=== PATIENT | female | born 1965 | race Caucasian/White ===

== ENCOUNTER 2017-04-04 02:35 | Emergency (ER) | payer BC, OTHER ==
--- NOTE | 2017-04-04 04:48 | C.PDOC ---
History Of Present Illness 51 year old female who presents to the ER with a complaint of a headache secondary to insomnia. Patient states she has had insomnia for the past 3 days; she reports taking advil pm with no relief. Denies vomiting, neck pain, chest pain, SOB, palpitations, or URI symptoms. Time Seen by Provider: 04/04/17 02:56 Chief Complaint (Nursing): Headache History Per: Patient History/Exam Limitations: no limitations Onset/Duration Of Symptoms: Days Current Symptoms Are (Timing): Still Present Preceeding Symptoms: None Associated Symptoms: denies: Nausea, Vomiting Recent travel outside of the [place]: No Past Medical History Reviewed: Historical Data, Nursing Documentation, Vital Signs Vital Signs: Last Vital Signs Temp 98 F 04/04/17 03:01 Pulse 66 04/04/17 03:01 Resp 20 04/04/17 03:01 BP 144/85 04/04/17 03:01 Pulse Ox 98 04/04/17 04:52 - Medical History PMH: Hypothyroidism Surgical History: No Surg Hx Family History: States: Unknown Family Hx - Social History Hx Tobacco Use: No Hx Alcohol Use: No Hx Substance Use: No - Immunization History Hx Tetanus Toxoid Vaccination: No Hx Influenza Vaccination: Yes Hx Pneumococcal Vaccination: No Review Of Systems Cardiovascular: Negative for: Chest Pain, Palpitations Respiratory: Negative for: Cough, Shortness of Breath Gastrointestinal: Negative for: Vomiting Musculoskeletal: Negative for: Neck Pain Neurological: Positive for: Headache Physical Exam - Physical Exam Appears: Non-toxic Skin: Normal Color, Warm, Dry Head: Atraumatic, Normacephalic Eye(s): bilateral: Normal Inspection, PERRL, EOMI Oral Mucosa: Moist Neck: Normal, Supple Chest: Symmetrical, No Tenderness Cardiovascular: Rhythm Regular, No Murmur Respiratory: Normal Breath Sounds, No Rales, No Rhonchi, No Wheezing Gastrointestinal/Abdominal: Soft, No Tenderness Neurological/Psych: Oriented x3, Normal Speech, Normal Cognition ED Course And Treatment O2 Sat by Pulse Oximetry: 98 (Room air) Pulse Ox Interpretation: Normal Progress Note: Valium and motrin administered. On reevaluation, patient is sleeping comfortable on the stretcher; feels her condition has improved, will discharge home with follow up. Disposition - Disposition Referrals: Bev Jack MD [Non-Staff] - Disposition: HOME/ ROUTINE Disposition Time: 05:01 Condition: STABLE Additional Instructions: Please follow up with PMD Take meds as directed Return to ER if worse Prescriptions: diaZEpam [Valium] 5 mg PO HS #10 tab Ibuprofen [Motrin] 600 mg PO Q6H #20 tab Instructions: Insomnia (ED) Forms: [employer] (Egyptian) Print Language: LUXEMBOURGER - Clinical Impression Clinical Impression: Headache, Insomnia - Scribe Statement The provider has reviewed the documentation as recorded by the Scribmei Degroot All medical record entries made by the Camdenibmei were at my direction and personally dictated by me. I have reviewed the chart and agree that the record accurately reflects my personal performance of the history, physical exam, medical decision making, and the department course for this patient. I have also personally directed, reviewed, and agree with the discharge instructions and disposition.
[2017-04-04 05:30] VITALS: BP 115/75; PULSE 59; RESP 18; TEMP 98.6; O2SAT 100
== END 2017-04-04 05:33 | disposition home or self-care (01) ==
LOC: C.ER 02:35
DX: R51 Headache (principal); G47.00 Insomnia, unspecified